=== PATIENT | female | born 1955 | race Caucasian/White ===

== ENCOUNTER 2017-09-13 16:21 | Outpatient (CLI) | payer OTHER | END 2017-09-13 16:22 | disposition home or self-care (01) | LOC: BICMAMMO 16:21 | PROVIDERS: ATTEND Obstetrics & Gynecology | DX: Z12.31 Encounter for screening mammogram for malignant neoplasm of breast (principal) | CPT/HCPCS: 77063; 77067 ==

== ENCOUNTER 2018-02-07 08:38 | Outpatient (CLI) | payer OTHER ==
--- NOTE | 2018-02-07 11:00 | RAD ---
RIGHT WRIST THREE VIEWS: HISTORY: Right wrist pain and swelling. FINDINGS: Scaphoid waist is intact. Ulnar styloid is maintained. Mild joint space narrowing and osteophytosis . No acute fracture, dislocation, or aggressive osseous erosions. IMPRESSION: Mild osteoarthritis right wrist. POS: [facility]
== END 2018-02-07 08:39 | disposition home or self-care (01) ==
LOC: SCSRAD 08:38
PROVIDERS: ATTEND Family Medicine
DX: M19.031 Primary osteoarthritis, right wrist (principal)